=== PATIENT | female | born 1970 | race Caucasian/White ===

== ENCOUNTER → 2018-06-21 | Outpatient (CLI) | payer MEDICAID ==
[~2018-06-21] MED LIST: AMITRIPTYLINE H10 M1 PO; CEPHALEXIN500 M1 PO; CLARITIN-D 5 MG1 T12 PO; DEPO-PROVER150 MG/ML IM; MOBIC 7.5MG7.5 MG PO; NORCO 325 MG-7.1 TAB PO; PHENERGAN 25 TA25 MG
== END ==
LOC: COL.RAD 13:03
DX: R90.82 White matter disease, unspecified (principal)
CPT/HCPCS: A9585

== ENCOUNTER → 2020-11-20 | Outpatient (CLI) | payer MEDICAID | LOC: COL.CARD 11:21 | DX: R90.89 Other abnormal findings on diagnostic imaging of central nervous system (principal); R42 Dizziness and giddiness ==

== ENCOUNTER 2021-04-18 08:45 | Outpatient (CLI) | payer MEDICAID ==
[2021-04-18] VITALS (8 sets, daily range): BP systolic 106–135; BP diastolic 56–94; PULSE 66–82
[~2021-04-18] VITALS: Ht 165.1 cm; Wt 116.5 kg
[~2021-04-18 08:45] MED LIST changes: +CLARITIN 1010 MG/TAB PO; +DALIRESP500 MCG PO; +DEPAKOTE ER 25250 MG PO; +DESYREL 50MG50 MG PO; +FLONASEALLERGY NS; +PROAIR HFA0.09 MG/AC IH; +SINGULAIR 110 MG/TAB PO; +TRELEGY ELLIPT1 EACH IH
--- NOTE | 2021-04-18 10:15 | NUR ---
Report from Janice CHOUDHARY. Transferred by cart from Radiology. VSS. Bandaid to low back CD&I.
[2021-04-18 11:13] LABS: GLUCOSE,CSF 71 mg/dL (40-70); TOTAL PROTEIN,CSF 32 mg/dL (15-45)
--- NOTE | 2021-04-18 11:40 | NUR ---
Discharge instructions given by Shantelle CHOUDHARY. Transferred to private car by larry
[2021-04-18 11:52] LABS: CSF APPEARANCE CLEAR; CSF COLOR COLORLESS; CSF MONONUCLEAR 100 % (70-100); CSF POLYMORPHONUCLEAR 0 % (0-6); CSF RBC 0 /mm3 (0-0)
[2021-04-23 15:53] LABS: CSF OLIG BD INTERPRETATION 0 bands (<2); SE OLIGOCLONAL BANDING 1 bands (())
== END 2021-04-18 11:45 | disposition home or self-care (01) ==
LOC: COL.RAD 08:45
PROVIDERS: Nurse Practitioner
DX: R90.89 Other abnormal findings on diagnostic imaging of central nervous system (principal); R90.82 White matter disease, unspecified